=== PATIENT | male | born 1975 | race Caucasian/White ===

== ENCOUNTER → 2023-11-22 | Outpatient (CLI) | payer BC, SELFPAY ==
--- NOTE | 2023-11-22 11:29 | RAD_ITS ---
STUDY: X-RAY - RIGHT FOOT CLINICAL: Male, 48 years old. Pain following heel injury. TECHNIQUE: 3 view(s) of the foot. COMPARISON: None. FINDINGS: There is an enthesophyte involving the posterior superior calcaneus at the site of insertion of the Achilles tendon. Normal visualized subtalar, talonavicular, calcaneocuboid, tarsal and tarsometatarsal articulations. Normal metatarsi. Normal metatarsophalangeal joint of the great toe. Normal tibial and fibular sesamoid bones. Normal interphalangeal joint of the great toe. Normal phalanges of the great toe. Normal second through fifth metatarsophalangeal joints. Normal interphalangeal joints and phalanges of the lesser toes. The soft tissue structures are unremarkable. RAD/Foot min 3 Views IMPRESSION: A spur is seen at the insertion of the Achilles tendon. No fracture is seen. Electronically Signed: Govind Lawrence MD at 12:13 EDT ,
== END | disposition home or self-care (01) ==
LOC: MTRAD 11:29
PROVIDERS: PCP Family Medicine; Referring Provider Physician Assistant; Visit Provider Physician Assistant
DX: S99.921A Unspecified injury of right foot, initial encounter (principal); X58.XXXA Exposure to other specified factors, initial encounter
CPT/HCPCS: 73630

== ENCOUNTER → 2024-02-07 | Outpatient (CLI) | payer BC, SELFPAY ==
--- NOTE | 2024-02-07 09:49 | ECHOCS_ITS ---
Reason For Study: ABNORMAL EKG Procedure This was a 2D Doppler, Color Flow transthoracic echocardiogram. The study was technically difficult. D/T body habitus. Contrast injection was performed. Exam performed in department. Left Ventricle Normal LV size. The estimated ejection fraction is 40-45 %. Technically difficult study. Not ideal for commenting on regional wall motion. Right Ventricle Normal RV size. Normal systolic function. Atria The left and right atria are normal. No doppler evidence for ASD. Mitral Valve There is no mitral valve stenosis. No mitral valve insufficiency. Tricuspid Valve There is no tricuspid stenosis. Unable to estimate RV systolic pressure due to inadequate jet, pulmonary artery pressure probably normal. Aortic Valve Trisinus/trileaflet aortic valve. There is no aortic stenosis. No aortic valve insufficiency. Pulmonic Valve There is no pulmonic valvular stenosis. No pulmonic valve insufficiency. Great Vessels Normal aortic root. Pericardium/Pleural No pericardial effusion. Medication 22 gauge I.V. with prn adaptor inserted into right arm. Diluted definity 1.5ml given slow IV push to enhance endocardial definition. MMode/2D Measurements & Calculations LVIDd: 5.6 cm IVSd: 1.2 cm Ao root diam: 3.4 cm LVIDs: 4.3 cm LVPWd: 1.3 cm LA dimension: 4.2 cm RVDd: 3.7 cm FS: 22.8 % LAV(MOD-bp): 64.5 ml LA A4 area: 20.3 cm2 LA dimension(2D): 4.2 cm LAV(MOD-bp) Indexed: 27.1 ml/m2 LAV(MOD-sp2): 64.0 ml LAV(MOD-sp4): 62.6 ml TAPSE: 2.8 cm RA A4 area: 15.4 cm2 Time Measurements MV dec time: 0.15 sec Doppler Measurements & Calculations MV E max alex: 63.6 cm/sec Lat Peak E' Alex: 7.6 cm/sec Med Peak E' Alex: 7.6 cm/sec MV A max alex: 71.7 cm/sec E/E' lat: 8.3 E/E' med: 8.3 MV E/A: 0.89 MV V2 max: 93.7 cm/sec MV P1/2t max alex: 82.9 cm/sec Ao V2 max: 114.1 cm/sec MV max P.5 mmHg MV P1/2t: 39.2 msec Ao max P.2 mmHg MV V2 mean: 52.1 cm/sec MV dec slope: 619.2 cm/sec2 Ao V2 mean: 87.5 cm/sec MV mean P.3 mmHg Ao mean P.3 mmHg MV V2 VTI: 18.8 cm MVA(P1/2t): 5.6 cm2 Ao V2 VTI: 22.2 cm AV (velocity ratio): 0.83 LV V1 max: 87.8 cm/sec PA V2 max: 142.6 cm/sec LV V1 max P.1 mmHg PA V2 mean: 90.7 cm/sec LV V1 mean P.8 mmHg LV V1 mean: 65.8 cm/sec LV V1 VTI: 18.4 cm ECHO/Echo Complete W/ Contrast Interpretation Summary Technically difficult study. LVEF appears to be decreased. Estimated ejection fraction is around 40 to 45%. The estimated ejection fraction is 40-45 %. Ordering Physician: JAYDON VANN Referring Physician: Chuck Seaman Performed By: Symone Lai, [facility], RVT
== END | disposition home or self-care (01) ==
LOC: CVS 09:48
PROVIDERS: PCP Family Medicine
DX: I50.9 Heart failure, unspecified (principal); I25.10 Atherosclerotic heart disease of native coronary artery without angina pectoris; R94.31 Abnormal electrocardiogram [ECG] [EKG]
CPT/HCPCS: 93306; Q9957; A4216; C8929

== ENCOUNTER → 2024-02-13 | Outpatient (CLI) | payer BC, SELFPAY ==
--- NOTE | 2024-02-13 15:54 | STRESSREP_ITS ---
Stress Test Report Date: 02/13/2024 Procedure: Exercise tolerance test Indications: CAD Consent: Per the patient Procedure: The patient exercised on a Amaury protocol for 7 minutes and 16 seconds achieving a peak heart rate of 150 bpm (87% predicted maximal heart rate) with a peak blood pressure 190/98 mmHg and a peak MET capacity of approximately 10.4 MET's. The baseline ECG demonstrated normal sinus rhythm, left anterior fascicle block, poor R wave progression in the anterior leads. The peak exercise ECG demonstrated no significant ischemic changes. [There were no cardiac dysrhythmias pretest, during exercise, or recovery]. The functional capacity was considered normal for age. The patient had no complaint of chest discomfort during exercise or recovery. The examination was discontinued secondary to achieving target heart rate. Impression: 1. Technically adequate (percent predicted maximal heart rate greater than 85%) exercise tolerance test 2. Stress test is negative for exercise-induced chest pain. 3. Stress test test is negative for exercise-induced EKG changes of ischemia. 4. Functional capacity is normal for age This note was generated with [employer] software. It may contain incorrect words, spelling, and punctuation that were not noted in checking the note before signing.
== END | disposition home or self-care (01) ==
LOC: CVS 09:34
PROVIDERS: PCP Family Medicine
DX: I25.10 Atherosclerotic heart disease of native coronary artery without angina pectoris (principal); I42.9 Cardiomyopathy, unspecified
CPT/HCPCS: 93017

== ENCOUNTER → 2024-07-03 | Outpatient (CLI) | payer BC, SELFPAY ==
[2024-07-03 13:29] LABS: Hematocrit 43.7 % (40-54); Hemoglobin 15.2 g/dL (13.0-16.5); Mean Corp Hgb Conc 34.8 g/dL (32-36); Mean Corpuscular Volume 86.4 fL (80-94); Mean Platelet Vol. 9.4 fl (6.2-12.0); Platelet Count 245 K/mm3 (150-450); RBC Distribution Width CV 12.7 % (11.6-14.6); RBC Distribution Width SD 39.8 fl (35.1-43.9); Red Blood Count 5.06 M/mm3 (4.6-6.2); White Blood Count 7.5 K/mm3 (4.4-11.0)
[2024-07-03 14:28] LABS: ALB/GLOB Ratio 1.1 RATIO (0.9-2.4); AST(SGOT) 17 U/L (15-37); Alanine Aminotransfer ALT/SGPT 32 U/L (16-61); Albumin, Serum 3.9 g/dL (3.2-5.0); Alkaline Phosphatase 108 U/L (45-117); Anion Gap 4 (5-15); BUN 14 mg/dL (7-18); BUN/Creat Ratio 13.1 RATIO (10-20); Calcium,Total 9.3 mg/dL (8.5-10.1); Chloride 106 mmol/L (98-107); Cholesterol 147 mg/dL (200); Creatinine, Serum 1.07 mg/dL (0.70-1.30); EST Glomerular Filtration Rate 78 mL/min (>60); Est Glom Filt Rate - Afr Amer 94 mL/min (>60); Globulin 3.7 g/dL (2.2-4.2); Glucose 108 mg/dL (74-106); High Density Lipoprotein 43 mg/dL; Magnesium 2.2 mg/dL (1.6-2.6); Potassium 3.8 mmol/L (3.5-5.1); Protein, Total 7.6 g/dL (6.4-8.2); Sodium Level 138 mmol/L (136-145); Triglycerides 171 mg/dL; Very Low Density Lipoprotein 34 mg/dL (5-40)
[2024-07-03 15:14] LABS: Vitamin B12 493 pg/mL (211-911)
[2024-07-08 11:08] LABS: Testosterone, % Free 5.74 % (1.50-4.20); Testosterone, Free 12.97 ng/dL (5.00-21.00); Testosterone, Total 226 ng/dL (264-916)
== END | disposition home or self-care (01) ==
LOC: LAB 13:10
PROVIDERS: PCP Family Medicine; Referring Provider Family Medicine; Visit Provider Family Medicine
DX: E78.2 Mixed hyperlipidemia (principal); I11.0 Hypertensive heart disease with heart failure; I50.20 Unspecified systolic (congestive) heart failure; Z68.42 Body mass index [BMI] 45.0-49.9, adult; E66.01 Morbid (severe) obesity due to excess calories; R35.1 Nocturia; R53.83 Other fatigue; R68.82 Decreased libido
CPT/HCPCS: 36415; 80053; 80061; 82607; 83735; 84153; 84402; 84403; 84443; 85027; G0103

== ENCOUNTER → 2024-07-18 | Outpatient (CLI) | payer BC, SELFPAY ==
[2024-07-18 11:17] LABS: Anion Gap 4 (5-15); BUN 17 mg/dL (7-18); BUN/Creat Ratio 14.5 RATIO (10-20); Calcium,Total 9.1 mg/dL (8.5-10.1); Chloride 107 mmol/L (98-107); Creatinine, Serum 1.17 mg/dL (0.70-1.30); EST Glomerular Filtration Rate 70 mL/min (>60); Est Glom Filt Rate - Afr Amer 85 mL/min (>60); Glucose 205 mg/dL (74-106); Potassium 3.8 mmol/L (3.5-5.1); Sodium Level 138 mmol/L (136-145)
== END | disposition home or self-care (01) ==
LOC: LAB 10:05
PROVIDERS: PCP Family Medicine; Referring Provider Family Medicine; Visit Provider Family Medicine
DX: Z79.899 Other long term (current) drug therapy (principal); I50.22 Chronic systolic (congestive) heart failure
CPT/HCPCS: 36415; 80048

== ENCOUNTER → 2025-02-17 | Outpatient (CLI) | payer BC, SELFPAY ==
--- NOTE | 2025-02-17 12:25 | ECHOD_ITS ---
Reason For Study Reason For Study: SOB Procedure This was a 2D Doppler, Color Flow transthoracic echocardiogram. Exam performed in department. Left Ventricle Normal LV size. Left ventricular systolic function is normal. Stage 1 diastolic dysfunction. The left ventricular ejection fraction is 50 %. No regional wall motion abnormalities noted. Right Ventricle Normal RV size. Normal systolic function. Atria Normal left atrium. Normal right atrium. Mitral Valve Normal mitral valve. Tricuspid Valve Normal tricuspid valve. Mild tricuspid valve insufficiency. Pulmonary artery systolic pressure is 30 mmHg. Aortic Valve Trisinus/trileaflet aortic valve. Pulmonic Valve Normal pulmonic valve. Great Vessels Normal aortic root. The pulmonary artery is normal size. Inferior vena cava collapse with respiration. Pericardium/Pleural No pericardial effusion. MMode/2D Measurements & Calculations LVIDd: 6.5 cm IVSd: 0.98 cm Ao root diam: 3.5 cm LVIDs: 4.7 cm LVPWd: 1.0 cm RVDd: 3.6 cm FS: 28.1 % LAV(MOD-bp): 60.2 ml LVAd ap4: 41.2 cm2 LVAd ap2: 28.8 cm2 LAV(MOD-bp) Indexed: 26.7 ml/m2 LVLd ap4: 8.9 cm LVLd ap2: 7.4 cm LAV(MOD-sp2): 55.3 ml EDV(MOD-sp4): 161.0 ml EDV(MOD-sp2): 93.4 ml LAV(MOD-sp4): 64.7 ml EDV(sp4-el): 161.6 ml EDV(sp2-el): 95.6 ml LVAs ap4: 26.8 cm2 LVAs ap2: 18.5 cm2 LVLs ap4: 7.5 cm LVLs ap2: 6.7 cm ESV(MOD-sp4): 80.5 ml ESV(MOD-sp2): 41.9 ml ESV(sp4-el): 81.2 ml ESV(sp2-el): 43.8 ml EF(MOD-sp4): 50.0 % EF(MOD-sp2): 55.1 % EF(sp4-el): 49.8 % SV(MOD-sp4): 80.5 ml SV(MOD-sp2): 51.5 ml SV(sp4-el): 80.4 ml SI(MOD-sp4): 35.7 ml/m2 SI(MOD-sp2): 22.8 ml/m2 LA A4 area: 20.5 cm2 LA dimension(2D): 3.9 cm TAPSE: 2.6 cm Time Measurements MV dec time: 0.18 sec Doppler Measurements & Calculations MV E max alex: 64.2 cm/sec Lat Peak E' Alex: 6.2 cm/sec Med Peak E' Alex: 5.6 cm/sec MV A max alex: 82.6 cm/sec E/E' lat: 10.4 E/E' med: 11.4 MV E/A: 0.78 PA V2 max: 159.1 cm/sec TR max alex: 255.4 cm/sec PA V2 mean: 103.9 cm/sec TR max P.1 mmHg ECHO/Echo Complete Interpretation Summary Normal LV size. Left ventricular systolic function is normal. Stage 1 diastolic dysfunction. The left ventricular ejection fraction is 50 %. Pulmonary artery systolic pressure is 30 mmHg. Ordering Physician: Gonzalo Blue Referring Physician: Chuck Seaman Performed By: Symone Lai, YAMIL, RVT
--- NOTE | 2025-02-22 14:19 | STRESSREP ---
Stress Test Report Exercise myocardial perfusion stress test. 50-year-old man with a history of dyspnea. Stress protocol: Resting EKG demonstrates sinus rhythm with a rate of 72 bpm resting blood pressure is 138/96 mmHg. The patient exercised according to the regular Amaury protocol for a total duration of 8 minutes attaining a maximum heart rate of 129 bpm which was 75% of maximum predicted heart rate; the maximum workload was 10.4 metabolic equivalents. At rest there were no ST or T wave changes noted to suggest ischemia and at peak exercise upsloping ST changes only were noted which did not meet the criteria for ischemia. No clinical angina was noted the test was terminated due to the target heart rate being achieved/fatigue. The peak blood pressure was 180/84 mmHg. Rate-pressure product was 22,000. Conclusion: Exercise stress test with no EKG changes for ischemia at a high workload of 10.4 METS
== END | disposition home or self-care (01) ==
LOC: CVS 12:24
PROVIDERS: PCP Family Medicine; Referring Provider Internal Medicine; Visit Provider Internal Medicine
DX: R94.31 Abnormal electrocardiogram [ECG] [EKG] (principal); R06.02 Shortness of breath
CPT/HCPCS: 93017; 93306

== ENCOUNTER → 2025-02-26 | Outpatient (CLI) | payer BC, SELFPAY ==
[2025-02-26 10:37] LABS: Hematocrit 44.3 % (40-54); Hemoglobin 15.3 g/dL (13.0-16.5); Mean Corp Hgb Conc 34.5 g/dL (32-36); Mean Corpuscular Volume 88.4 fL (80-94); Mean Platelet Vol. 9.8 fl (6.2-12.0); Platelet Count 247 K/mm3 (150-450); RBC Distribution Width CV 12.6 % (11.6-14.6); RBC Distribution Width SD 40.9 fl (35.1-43.9); Red Blood Count 5.01 M/mm3 (4.6-6.2); White Blood Count 6.2 K/mm3 (4.4-11.0)
[2025-02-26 10:55] LABS: AST(SGOT) 23 U/L (<=37); Alanine Aminotransfer ALT/SGPT 22 U/L (<=46); Albumin, Serum 4.4 g/dL (3.5-5.0); Alkaline Phosphatase 94 U/L (40-129); Anion Gap 11 (5-15); BUN 16 mg/dL (4-19); BUN/Creat Ratio 14.6 RATIO (10-20); Calcium,Total 9.3 mg/dL (7.6-11.0); Carbon Dioxide 25.3 mmol/L (21.0-32.0); Chloride 103 mmol/L (98-108); Cholesterol 148 mg/dL (<=200); Globulin 3.2 g/dL (2.2-4.2); Glucose 117 mg/dL (70-99); Low Density Lipoprotein Calc. 71 mg/dL; Magnesium 2.3 mg/dL (1.5-2.2); PSA,Total- Diagnostic 0.40 ng/mL (0.00-4.00); Potassium 4.5 mmol/L (3.3-5.1); Triglycerides 166 mg/dL; Very Low Density Lipoprotein 33 mg/dL (5-40); Vitamin B12 679 pg/mL (180-914); cholesterol:hdl ratio screen 3.36
[2025-03-03 14:08] LABS: Testosterone, % Free 3.35 % (1.50-4.20); Testosterone, Free 8.44 ng/dL (5.00-21.00)
== END | disposition home or self-care (01) ==
LOC: LAB 08:53
PROVIDERS: PCP Family Medicine; Referring Provider Family Medicine; Visit Provider Family Medicine
DX: I11.0 Hypertensive heart disease with heart failure (principal); I50.20 Unspecified systolic (congestive) heart failure; E66.813 Obesity, class 3; Z68.42 Body mass index [BMI] 45.0-49.9, adult; E78.2 Mixed hyperlipidemia; R68.82 Decreased libido; R53.83 Other fatigue; R53.1 Weakness
CPT/HCPCS: 36415; 80053; 80061; 82607; 83735; 84153; 84402; 84403; 84443; 85027